=== PATIENT | male | born 1980 | race Hispanic/Latino ===

== ENCOUNTER 2018-09-12 14:25 | Emergency (ER) | payer MEDICAID ==
[2018-09-12 15:11] VITALS: BP 133/100
--- NOTE | 2018-09-12 15:31 | Emergency Department Report ---
HPI - General Chief Complaint: Psych Time Seen by Provider: 09/12/18 14:36 - HPI HPI: 38-year-old male, with a past medical history of cerebral palsy, presents to the emergency department for a mental health evaluation. The patient says that he called an ambulance to be seen because he is exhibiting some "strange behavior." The patient went to a scientologist last night for some type of meeting says that he stayed there afterwards for many hours just walking around. He says he is unsure why he decided to do so but something in his mind told him that that is where he needed to be. Afterwards he took a lyft back home. He is currently awake, alert, oriented. He denies any suicidal or homicidal ideations or any hallucinations. His primary care physician is Dr. Llanos. He denies any past psychiatric history. ED Past Medical Hx - Past Medical History Previous Medical History?: Yes Additional medical history: CEREBRAL PALSY - Surgical History Past Surgical History?: No - Social History Smoking Status: Never Smoker Substance Use Type: None - Medications Home Medications: Home Medications Medication Instructions Recorded Confirmed Last Taken Type HYDROcodone/APAP 7.5-325 [[place] 1 each PO Q6HR PRN #20 tablet 12/12/14 Unknown Rx 7.5/325] Ibuprofen [Motrin] 600 mg PO Q8H PRN #40 tablet 12/12/14 Unknown Rx ED Review of Systems ROS: Stated complaint: MH EVAL Other details as noted in HPI Comment: All other systems reviewed and negative Constitutional: denies: chills, fever Eyes: denies: eye pain, vision change ENT: denies: ear pain, throat pain Respiratory: denies: cough, shortness of breath Cardiovascular: denies: chest pain, palpitations Gastrointestinal: denies: abdominal pain, vomiting Genitourinary: denies: dysuria, discharge Musculoskeletal: denies: back pain, arthralgia Skin: denies: rash, lesions Neurological: denies: headache, weakness Physical Exam - Physical Exam Vital Signs: Vital Signs 09/12/18 15:09 Temperature 97.6 F Pulse Rate 93 H Respiratory 20 Rate Blood Pressure 133/100 [Left] O2 Sat by Pulse 99 Oximetry Physical Exam: GENERAL: The patient is well-developed well-nourished. HENT: Normocephalic. Atraumatic. Patient has moist mucous membranes. EYES: Extraocular motions are intact. NECK: Supple. Trachea is midline. CHEST/LUNGS: Clear to auscultation. There is no respiratory distress noted. HEART/CARDIOVASCULAR: Regular. There is no tachycardia. There is no murmur. ABDOMEN: Abdomen is soft, nontender. Patient has normal bowel sounds. There is no abdominal distention. SKIN: Skin is warm and dry. NEURO: The patient is awake, alert, and oriented. The patient is cooperative. The patient has no focal neurologic deficits. The patient has normal speech. MUSCULOSKELETAL: There is no tenderness or deformity. There is no evidence of acute injury. PSYCH: Patient is slightly anxious but otherwise is appropriate. ED Course Vital Signs 09/12/18 15:09 Temperature 97.6 F Pulse Rate 93 H Respiratory 20 Rate Blood Pressure 133/100 [Left] O2 Sat by Pulse 99 Oximetry ED Medical Decision Making - Medical Decision Making This patient presents to the emergency department for a mental health evaluation. He describes some self-proclaimed strange behavior in which he was wandering around the parking lot of a scientologist for unknown reasons. However he then made the decision to go home and was able to get himself home safely. He describes some change in his appetite and difficulty with sleeping. However the patient denies any hallucinations or any suicidal or homicidal ideations. He was seen by the psych casket assembler, Sophia, who did a full evaluation and does not feel that he meets criteria for involuntary inpatient psychiatric treatment. I agree with this assessment and feel that the patient can follow up outpatient. The patient is awake, alert and oriented and has normal decision making capacity. He refused all blood work and urinalysis studies. He will be discharged home to follow up outpatient but has been encouraged to return with any worsening of his symptoms, thoughts of harming himself or others, or with any acute distress. - Differential Diagnosis anxiety, substance abuse, bipolar disorder Critical Care Time: No Critical care attestation.: If time is entered above; I have spent that time in minutes in the direct care of this critically ill patient, excluding procedure time. ED Disposition Clinical Impression: Anxiety Cerebral palsy Qualifiers: Cerebral palsy type: unspecified type Qualified Code(s): G80.9 - Cerebral palsy, unspecified Disposition: DC-01 TO HOME OR SELFCARE Is pt being admited?: No Condition: Stable Instructions: Anxiety (ED) Additional Instructions: Please follow up with her primary care physician in the next few days. I am giving him a referral for the [facility] facility to follow up regarding your self-described strange behavior. Return to the emergency Department with any worsening of your symptoms, thoughts of harming yourself or others, development of hallucinations, or any acute distress. Referrals: [facility] [Outside] - 3-5 Days Time of Disposition: 15:31
== END 2018-09-12 15:30 | disposition home or self-care (01) ==
LOC: ED 14:25
DX: F41.9 Anxiety disorder, unspecified (principal); G80.9 Cerebral palsy, unspecified; Z88.2 Allergy status to sulfonamides
CPT/HCPCS: 99284